=== PATIENT | female | born 2005 | race Caucasian/White ===

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

== ENCOUNTER 2025-06-13 12:37 | Emergency (ER) | payer OTHER, SELFPAY ==
--- NOTE | 2025-06-13 14:37 | EDPHYS ---
Physician Documentation [facility] Name: Ana Rosa Jacome Age: 19 yrs Sex: Female : 2005 Arrival Date: 06/13/2025 Time: 12:37 Bed IW2 Private MD: ED Physician Luis Fernando Mayer HPI: 06/13 12:50 This 19 yrs old Female presents to ER via EMS with complaints of Nausea. dr5 12:50 The patient presents to the emergency department with nausea. Onset: The dr5 symptoms/episode began/occurred acutely. Patient is a 19-year-old female history of seizure disorder coming in for abdominal pain and was found on floor in a jainism with dilated pupils.. Historical: - Allergies: 12:47 Sulfa (Sulfonamide Antibiotics); dd2 - PMHx: 12:47 Seizure; dd2 - PSHx: 12:47 None; dd2 ROS: 12:50 Constitutional: as per hpi dr5 Exam: 12:50 Constitutional: Briefly assessed patient while patient was on stretcher. Will do full dr5 exam while patient is in room. Vital Signs: 12:44 BP 126 / 80; Pulse 80; Resp 17; Temp 98.1; Pulse Ox 100% on R/A; dd2 MDM: 12:46 Medical Screening Exam initiated dr5 14:37 Differential diagnosis: gastritis, cholecystitis, pancreatitis, appendicitis, dr5 diverticulitis. Data reviewed: vital signs, EMS record. ED course: Upon pulling patient into triage room, patient has left before treatment was completed.. 06/13 14:34 Order name: IV Saline Lock dr5 06/13 14:34 Order name: Labs collected and sent dr5 Administered Medications: No medications were administered Disposition: 18:40 Co-signature as Attending Physician, Luis Fernando Mayer MD I reviewed the patient's care rn provided by the Advanced Practice Provider and agree with the diagnosis and treatment plan. Disposition Summary: 06/13/25 14:36 Eloped Notes: Disposition: after being seen by provider dd2 Reason: (see nurse's notes) dd2 Signatures: Dispatcher [employer] EDMS Luis Fernando Mayer MD MD rn DAVIS, DIANA, RN RN dd2 Davey Pollack, BEAUTY OPERATOR APPRENTICE-C BEAUTY OPERATOR APPRENTICE-Cdr5 Corrections: (The following items were deleted from the chart) 14:34 14:34 CBC+H.LAB.BRZ ordered. EDMS EDMS 14:34 14:34 COMPREHENSIVE METABOLIC PANEL+C.LAB.BRZ ordered. EDMS EDMS 14:34 14:34 LIPASE+C.LAB.BRZ ordered. EDMS EDMS
--- NOTE | 2025-06-13 14:37 | ER ---
Nurse's Notes [facility] Name: Ana Rosa Jacome Age: 19 yrs Sex: Female : 2005 Arrival Date: 06/13/2025 Time: 12:37 Bed IW2 Private MD: Diagnosis: Presentation: 06/13 12:44 Chief complaint: EMS states: TONED OUT FOR NEAR SYNCOPE. WAS FOUND SITTING ON THE dd2 BATHROOM FLOOR OF A [employer] [facility], PUPILS DILATED. EMS REPORTS PT AAOX3, C/O NAUSEA. DENIES VOMITING. Coronavirus screen: At this time, the client does not indicate any symptoms associated with coronavirus-19. Ebola Screen: No symptoms or risks identified at this time. Initial Sepsis Screen: Does the patient meet any 2 criteria? No. Patient's initial sepsis screen is negative. Does the patient have a suspected source of infection? No. Patient's initial sepsis screen is negative. Risk Assessment: Do you want to hurt yourself or someone else? Patient reports no desire to harm self or others. Onset of symptoms was June 13, 2025. 12:44 Method Of Arrival: EMS: [facility] dd2 12:44 Acuity: CRISS 3 dd2 Triage Assessment: 12:49 General: Appears in no apparent distress. Behavior is calm, cooperative, appropriate dd2 for age. Neuro: Reports weakness. GI: Reports nausea. Historical: - Allergies: 12:47 Sulfa (Sulfonamide Antibiotics); dd2 - PMHx: 12:47 Seizure; dd2 - PSHx: 12:47 None; dd2 Assessment: 14:34 Reassessment: PT CALLED MULTIPLE TIMES FROM WAITING ROOM, NO ANSWER. DELLA HUTCHINS dd2 AND INSOLE LIP TURNER BRIAN NOTIFIED. Vital Signs: 12:44 BP 126 / 80; Pulse 80; Resp 17; Temp 98.1; Pulse Ox 100% on R/A; dd2 ED Course: 12:40 Patient arrived in ED. im 12:46 Davey Pollack FNP-C is PHCP. dr5 12:46 Luis Fernando Mayer MD is Attending Physician. dr5 12:47 Triage completed. dd2 12:49 Arm band placed on right wrist. dd2 Administered Medications: No medications were administered Outcome: 14:34 Eloped from waiting room, after seeing physician Time discovered patient gone: June2 2024 at 14:30 14:34 Condition: stable 14:34 Discharge instructions given to PT JULY FROM WAITING ROOM 14:36 Patient left the ED. dd2 Signatures: Kely Gomes DIANA RN RN dd2 Davey Pollack, MEDICAL MANAGEMENT SPECIALIST-C MEDICAL MANAGEMENT SPECIALIST-Cdr5
[2025-06-13 15:25] VITALS: BP 126/80; TEMP 98.1; O2SAT 100
== END 2025-06-13 14:36 | disposition left against medical advice (07) ==
LOC: ER 12:37
DX: R11.0 Nausea (principal); R55 Syncope and collapse
CPT/HCPCS: 99283